=== PATIENT | female | born 1975 | race Caucasian/White ===

== ENCOUNTER 2022-02-02 18:23 | Emergency (ER) | payer SELFPAY ==
[~2022-02-02] VITALS: Ht 157.5 cm; Wt 93.2 kg
[2022-02-02 18:32] VITALS: TEMP 97.5
[2022-02-02 18:56] LABS: COLLECTION METHOD CLEAN CATCH
[2022-02-02 19:09] LABS: PH 8 (5-8); SQUAMOUS EPITHELIAL 0-2 /hpf (0-10); URINE APPEARANCE Cloudy (CLEAR/HAZY); URINE BACTERIA None Seen /hpf (NONE SEEN); URINE BILIRUBIN Negative (NEGATIVE); URINE BLOOD 1+ (NEGATIVE); URINE COLOR Yellow (YELLOW); URINE GLUCOSE Negative (NEGATIVE); URINE KETONE Negative (NEGATIVE); URINE LEUKOCYTE ESTERASE 3+ (NEGATIVE); URINE NITRATE Negative (NEGATIVE); URINE PROTEIN(semi-quant) 1+ (NEGATIVE); URINE UROBILINOGEN Negative (NEGATIVE)
[2022-02-02] MEDS ORDERED: OMNICEF 300MG300 MG PO (19:16)
[2022-02-02 19:24] VITALS: BP 124/85; PULSE 80
== END 2022-02-02 19:24 | disposition home or self-care (01) ==
LOC: COL.ER 18:23
PROVIDERS: Personal Emergency Response Attendant
DX: N39.0 Urinary tract infection, site not specified (principal); Z98.891 History of uterine scar from previous surgery; Z28.310 Unvaccinated for COVID-19

== ENCOUNTER 2022-03-22 10:59 | Emergency (ER) | payer OTHER ==
[~2022-03-22] VITALS: Ht 162.6 cm; Wt 115.9 kg
[~2022-03-22 10:59] MED LIST: OMNICEF 300MG300 MG PO
[2022-03-22 11:17] VITALS: TEMP 97.7
[2022-03-22] MEDS ORDERED: PROTONIX 40MG T40 MG PO (11:34)
[2022-03-22] MEDS ORDERED: NEURONTIN600 MG/TAB PO (11:34)
[2022-03-22] MEDS ORDERED: TOPAMAX50 MG PO (11:34)
[2022-03-22] MEDS ORDERED: MOBIC15 MG PO (11:34)
[2022-03-22] MEDS ORDERED: LEVOXYL0.1 MG PO (11:35)
[2022-03-22] MEDS ORDERED: CELEXA40 MG PO (11:35)
[2022-03-22] MEDS ORDERED: BIOTIN5000 MCG PO (11:35)
[2022-03-22] MEDS ORDERED: FLEXERIL 1010 MG/TAB PO (11:35)
[2022-03-22 11:51] LABS: BASO # 0.1 K/mm3 (0.0-0.2); EOS # 0.3 K/mm3 (0.0-0.7); EOS % 4.6 % (0.0-4.0); GRAN # 3.9 K/mm3 (1.4-6.5); GRAN % 55.2 % (42.2-75.2); HEMATOCRIT 39.3 % (37.0-47.0); HEMOGLOBIN 12.7 g/dl (12.5-16.0); LYMPH # 2.3 K/mm3 (1.2-3.4); LYMPH % 32.3 % (20.0-51.0); MEAN CELL VOLUME 93 fl (80.0-100.0); MEAN CORPUSCULAR HEMOGLOBIN 30 pg (27-31); MEAN CORPUSCULAR HGB CONC 32 g/dl (33.0-37.0); MEAN PLATELET VOLUME 9.8 fl (7.4-10.4); MONO # 0.4 K/mm3 (0.1-0.6); MONO % 6.3 % (1.7-9.3); PLATELET COUNT 323 K/mm3 (130-400); RED BLOOD COUNT 4.23 M/mm3 (4.10-5.30); REDCELL DISTRIBUTION WIDTH-CV 13.4 % (11.5-14.5)
[2022-03-22 12:24] LABS: ALANINE AMINOTRANSFERASE 27 U/L (0-55); ALBUMIN 3.7 gm/dL (3.5-5.0); ALKALINE PHOSPHATASE 76 U/L (40-150); ANION GAP 10 mmol/L (7-16); AST,SGOT 28 U/L (5-34); BILIRUBIN,TOTAL 0.3 mg/dL (0.2-1.2); BLOOD UREA NITROGEN 20 mg/dL (7-19); CARBON DIOXIDE 22 mmol/L (22-29); CHLORIDE 109 mmol/L (98-107); CREATININE, serum 0.83 mg/dL (0.57-1.11); GLUCOSE 75 mg/dL (70-99); POTASSIUM 3.8 mmol/L (3.5-4.5); SODIUM 141 mmol/L (136-145)
[2022-03-22 12:40] LABS: COLLECTION METHOD CLEAN CATCH
[2022-03-22 12:45] LABS: TROPONIN-I < 0.010 ng/mL (0.00-0.033)
[2022-03-22 13:02] LABS: PH 5.5 (5.0-8.5); URINE APPEARANCE Clear (CLEAR/HAZY); URINE BLOOD Negative (NEGATIVE); URINE COLOR Yellow (YELLOW); URINE GLUCOSE Negative (NEGATIVE); URINE KETONE Negative (NEGATIVE); URINE NITRATE Negative (NEGATIVE); URINE PROTEIN(semi-quant) Negative (NEGATIVE); URINE UROBILINOGEN 0.2 E.U/dL (0.2-1.0)
[2022-03-22 13:06] LABS: MUCOUS Present (NOT PRESENT); URINE BACTERIA Rare /hpf (NONE SEEN); URINE RBC 0-2 /hpf (0-2)
[2022-03-22 13:37] VITALS: BP 131/87; PULSE 80
== END 2022-03-22 13:39 | disposition home or self-care (01) ==
LOC: COL.ER 10:59
PROVIDERS: Family Medicine
DX: H53.2 Diplopia (principal)